=== PATIENT | female | born 1995 | race Caucasian/White ===

== ENCOUNTER → 2017-07-28 19:46 | Outpatient (CLI) | payer OTHER, SELFPAY ==
[2017-07-28 20:31] LABS: Basophils % 0.3 % (0.1-2.0); Eosinophils # 0.2 K/mm3 (0.0-0.4); Eosinophils % 1.8 % (0.1-12.0); Hematocrit 36.3 % (37.0-47.0); Hemoglobin 12.5 g/dL (12.2-16.2); Lymphocytes # 2.8 K/mm3 (0.7-4.5); Lymphocytes % 31.4 K/mm3 (10-50); Mean Corpuscular HGB Conc 34.3 g/dL (31.8-35.4); Mean Corpuscular Hemoglobin 29.8 pg (27.0-31.2); Mean Corpuscular Volume 86.8 fl (81-99); Mean Platelet Volume 7.3 fl (7.4-10.4); Monocytes # 0.4 K/mm3 (0.1-1.0); Monocytes % 4.6 % (1.7-9.3); Neutrophils # 5.6 K/mm3 (1.8-7.8); Neutrophils % 61.9 % (37.0-80.0); Platelet Count 346 K/mm3 (142-424); Red Blood Count 4.18 M/mm3 (4.20-5.40); Red Cell Distribution Width 12.7 % (11.5-17.5); White Blood Count 9.1 K/mm3 (4.8-10.8)
[2017-07-31 13:03] LABS: EBV Ab VCA, IgM <36.0 U/mL (0.0-35.9); EBV Nuclear Antigen Ab, IgG 39.2 U/mL (0.0-17.9)
[2017-08-01 05:20] LABS: CMV PCR Negative (Negative)
== END ==
PROVIDERS: PCP Nurse Practitioner Family; Visit Provider Nurse Practitioner Family
DX: R59.9 Enlarged lymph nodes, unspecified (principal)
CPT/HCPCS: 36415; 85025; 86664; 86665

== ENCOUNTER → 2019-12-27 11:49 | Outpatient (CLI) | payer OTHER, SELFPAY | PROVIDERS: PCP Nurse Practitioner Family; Visit Provider Nurse Practitioner Family | DX: Z03.818 Encounter for observation for suspected exposure to other biological agents ruled out (principal) | CPT/HCPCS: U0003 ==

== ENCOUNTER 2020-03-04 14:32 | Emergency (ER) | payer OTHER, SELFPAY ==
[2020-03-04 14:34] VITALS: BP 137/67; PULSE 90; RESP 16; TEMP 37.2; O2SAT 98; BMI 27.9
--- NOTE | 2020-03-04 14:35 | PC.NURSE ---
Patient advised a urine sample was needed. Pt in bathroom at this time.
--- NOTE | 2020-03-04 14:50 | HMH.EDGENADL ---
ED Disposition Clinical Impression: Threatened Disposition: Home, Self-Care Condition on Discharge: Good Instructions: DI for Headache Additional Instructions: pelvic rest until f/u w/ SEAMER OPERATOR Referrals: Meryl Solomon [Primary Care Provider] - - Critical Care Critical Care Time: No Attestation: On 03/04/20, the high probability of a clinically significant, sudden or life threatening deterioration of the following system(s) required my full and direct attention, intervention and personal management. The time I documented below is in addition to time spent performing reported procedures but includes the following listed in this critical care notation. Medical Decision Making - Medical Records Medical records reviewed: Yes: I reviewed the patient's medical records. - Prince Inquiry Pt receiving controlled substance: No Vital Signs: 03/04/20 14:34 Temperature 99 F Temperature Source Oral Pulse Rate [Radial] 90 Respiratory Rate 16 Blood Pressure [Right Arm] 137/67 Blood Pressure Mean [Right Arm] 90 Blood Pressure Position [Right Arm] Sitting 02 Sat by Pulse Oximetry 98 Oxygen Delivery Method Room Air - Lab Data Lab results reviewed: Yes: I reviewed the patient's lab results. Lab Results 03/04/20 14:37: Urine Color Yellow, Urine Appearance Clear, Urine pH 6.0, Ur Specific [place] 1.010, Urine Protein Negative, Urine Glucose (UA) Negative, Urine Ketones Negative, Urine Blood Negative, Urine Nitrate Negative, Urine Bilirubin Negative, Urine Urobilinogen 0.2, Ur Leukocyte Esterase Negative, Urine RBC None, Urine WBC None, Ur Squamous Epith Cells Occasional, Urine Bacteria None 03/04/20 15:20: HCG, Quant 1710 H Orders (Tests/Meds): ORDERS Category Date Time Status Covid-19 Nasal PCR Sendout P&C Stat Lab 03/04/20 15:20 Received General Adult HPI - General Chief complaint: Headache Stated complaint: headache, cough, spotting, covid employee Time Seen by Provider: 03/04/20 14:45 Mode of Arrival: Ambulatory Limitations: No Limitations Description of Symptoms (Recalled from ER Triage Doc. 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 test thursday. pt G3, P2, AB0. - History of Present Illness HPI narrative: This is a 24-year-old female that presents with frontal headache. Symptoms ongoing since last evening. Patient reports working on [employer] unit and both children also have Covid symptoms. Patient also reports scant vaginal discharge that is pink in color. Patient does report recent a positive test as of last week. Last menstrual cycle was approximately 4 to 6 weeks ago. No abdominal pain. No dysuria. Headache is moderate in intensity without modifying measures. No loss of taste or smell. No fever no chills. No body aches. No significant cough. - Related Data Home Medications Medication Instructions Recorded Confirmed sertraline 100 mg tablet PO #30 tab 11/04/18 09/12/19 Allergies Allergy/AdvReac Type Severity Reaction Status Date / Time No Known Allergies Allergy Verified 09/12/19 09:48 [facility] History - Hepatitis A Screen Drug use history?: No High risk sexual behaviors?: No History of sexually transmitted infection?: No Currently employed?: No Childcare worker?: No Do you have indoor plumbing?: Yes Do you have electricity?: Yes Attestation statement:: This patient has been screened for Hepatitis A risk factors. I have reviewed the patient's past medical history: Yes Medical History: Reports:: Migraine Denies:: Cancer, Diabetes Mellitus Type 1, Diabetes Mellitus Type 2, Hypertension, MRSA Other Medical History: Reports: Other Amputation: No Fractures: No - Social History Smoking Status: Never smoker Alcohol Intake: current Alcohol Intake Frequency:: holidays/special occasions only Occupational Status: employed Family Hx:: No sign
[2020-03-04 15:20] LABS: Microscopic, Urine URINE MICROSCOPIC (MICROSCOPIC)
[2020-03-04 15:21] LABS: Appearance,Urine CLEAR (Clear); Bilirubin,Urine Negative (Negative); Blood, Urine Negative (Negative); Color,Urine YELLOW (Yellow); Glucose,Urine (UA) Negative (Negative); Ketones,Urine Negative (Negative); Leukocyte Esterase,Urine Negative (Negative); Nitrate,Urine Negative (Negative); Protein,Urine Negative (Negative); Urobilinogen,Urine 0.2 EU/dl (0.2)
[2020-03-04 15:31] LABS: Squamous Epithelial Cell,Urine Occasional #/hpf (0-5)
[2020-03-04 16:00] LABS: HCG,Quantitative 1710 mIU/ml (0-5.42)
[2020-03-04 16:42] VITALS: BP 112/74; PULSE 89; RESP 16; TEMP 37.2; O2SAT 98
[2020-03-06 11:11] LABS: Covid-19 Nasal PCR Sendout P&C POSITIVE
== END 2020-03-04 16:44 | disposition home or self-care (01) ==
PROVIDERS: Emergency Provider Emergency Medicine; PCP Nurse Practitioner Family
DX: U07.1 COVID-19 (principal); O20.9 Hemorrhage in early pregnancy, unspecified
CPT/HCPCS: 81001; 84702; 99283; U0004

== ENCOUNTER → 2020-03-06 10:02 | Outpatient (CLI) | payer OTHER, SELFPAY ==
[2020-03-06 14:22] LABS: HCG,Quantitative 4316 mIU/ml (0-5.42)
== END ==
PROVIDERS: Visit Provider Nurse Practitioner Obstetrics & Gynecology
DX: Z34.90 Encounter for supervision of normal pregnancy, unspecified, unspecified trimester (principal)
CPT/HCPCS: 36415; 84702

== ENCOUNTER 2020-04-14 13:28 | Emergency (ER) | payer OTHER, SELFPAY ==
[2020-04-14 13:40] VITALS: BP 130/70; PULSE 78; RESP 16; TEMP 36.6; TEMP 36.7; O2SAT 98; BMI 26.6
[2020-04-14 14:07] LABS: Apearance,Urine Clear (Clear); Color,Urine Yellow (Yellow)
[2020-04-14 14:08] LABS: Bilirubin,Urine Negative (Negative); Blood, Urine Negative (Negative); Glucose,Urine (UA) Negative (Negative); Ketones,Urine Negative (Negative); Protein,Urine Negative (Negative); Specific Gravity, Urine >= 1.030 (1.005-1.030); UTC Leukocyte Esterase,Urine Negative (Negative); UTC Nitrate,Urine Negative (Negative); Urobilinogen,Urine 0.2 EU/dl (0.2)
--- NOTE | 2020-04-14 14:10 | HMH.EDUTC ---
[facility] [place] Dis[place] Clinical Impression: Nausea Disposition: Home, Self-Care Condition on Discharge: Good Instructions: DI for Nausea -- Child, Support (Alternative Therapy), Nausea of (Alternative Therapy) Additional Instructions: increase fluids follow up with technical support engineer-elevated glucose if symptoms return come back or be seen in ed Referrals: Meryl Solomon [Primary Care Provider] - Time of Disposition: 16:05 Medical Decision Making - Prince Inquiry Pt receiving controlled substance: No Vital Signs: 04/14/20 13:40 Temperature 98.0 F Temperature Source Oral Pulse Rate [Right] 78 Respiratory Rate 16 Blood Pressure [Right Arm] 130/70 Blood Pressure Mean [Right Arm] 90 Blood Pressure Source [Right Arm] Automatic Cuff Blood Pressure Position [Right Arm] Sitting 02 Sat by Pulse Oximetry 98 Oxygen Delivery Method Room Air - Lab Data Lab Results 04/14/20 13:41: Urine Color Yellow, Urine Appearance Clear, Urine pH 6.0, Ur Specific [place] >= 1.030, Urine Protein Negative, Urine Glucose (UA) Negative, Urine Ketones Negative, Urine Blood Negative, Urine Nitrate Negative, Urine Bilirubin Negative, Urine Urobilinogen 0.2, Ur Leukocyte Esterase Negative 04/14/20 14:20: WBC 8.5, RBC 4.05 L, Hgb 12.5, Hct 36.8 L, MCV 90.8, MCH 30.9, MCHC 34.0, RDW 13.9, Plt Count 302, MPV 7.5, Neut % (Auto) 65.1, Lymph % (Auto) 28.9, [place] % (Auto) 4.5, Eos % (Auto) 1.4, Baso % (Auto) 0.2, Neut # (Auto) 5.6, Lymph # (Auto) 2.5, [place] # (Auto) 0.4, Eos # (Auto) 0.1, Baso # (Auto) 0.0 04/14/20 14:20: Sodium 135 L, Potassium 3.8, Chloride 101, Carbon Dioxide 26, Anion Gap 11.8, BUN 13, Creatinine 0.50 L, Estimated Creat Clear 197, Estimated GFR 150, Est GFR ( Amer) 182, Glucose 113 H, Calcium 9.5, Total Bilirubin 0.2, AST 22, ALT 14, Alkaline Phosphatase 62, Total Protein 7.9, Albumin 4.1, Globulin 3.8 H, Albumin/Globulin Ratio 1.1 Result diagrams: 04/14/20 14:20 04/14/20 14:20 Orders (Tests/Meds): ED MEDICATIONS Generic Name Dose Route Start Last Admin Trade Name Sauarv PRN Reason Stop Dose Admin Sodium Chloride 1,000 mls @ 999 mls/hr 04/14/20 14:15 04/14/20 14:20 Sod Chlor 0.9% 1000ml Bag IV 04/14/20 15:15 999 mls/hr .[id number] RONNIE Administration ORDERS Category Date Time Status US OB transvaginal Stat Ultrasound 04/14/20 14:12 Ordered - Physician Consults Physician Consulted: allyson Time: 16:04 Reason -: Obstetrical Eval/Care, Other Comment/Response: discussed labs,us. pt states she feels better after iv fluids [facility] [place] HPI - General Chief complaint: [facility] Stated complaint: 11 weeks preg;pain in rt side;dizziness/TAN Time Seen by Provider: 04/14/20 14:10 Mode of Arrival: Ambulatory Source of Information: Patient Limitations: No Limitations Description of Symptoms (Recalled from Triage Doc. by RN): PATIENT IS APPROX 11 WEEKS AND C/O LIGHT-HEADED, DIZZINESS, AND PAIN IN RIGHT SIDE OF STOMACH HEENT Symptoms (Recalled from RN notes): No Resp Symptoms (Recalled from RN notes): No Skin Symptoms (Recalled from RN notes): No MS Symptoms (Recalled from RN notes): No Functional Status (Recalled from RN notes): WNL - History of Present Illness Provider Complaint: 25 yr old female presents for headache,dizzy and abd pain on rt side. pt states she talked with pcp and was told come get checked out to make sure she was not dehydrated. Pt states for the last 3 weeks she has had morning sickness so bad she has needed to take zofran. - Related Data Home Medications Medication Instructions Recorded Confirmed sertraline 100 mg tablet PO #30 tab 11/04/18 09/12/19 Allergies Allergy/AdvReac Type Severity Reaction Status Date / Time No Known Allergies Allergy Verified 09/12/19 09:48 - Worker's Comp Is this a Worker's Comp case?: No [facility] History - Hepatitis A Screen Drug use history?: No High risk sexual behaviors?: No History of sexually transmitted infecti
--- NOTE | 2020-04-14 14:12 | US_ITS ---
PROCEDURE: US OB TRANSVAGINAL Referring Doctor: Mc Helton Patient Age:25Y CLINICAL INDICATION: abd pain, 11 weeks COMPARISON: No exams were available for comparison FINDINGS: Single early viable intrauterine gestation.. Embryo well-visualized with good movement and tone. The amnion and chorion have not yet fused and are identified. . Small residual yolk sac noted Heart beat identified and documented. Heart rate 155 BPM. CRL = 3.9 cm = 10 week 6 day average ultrasound age Mean sac size is 4.89 = 10 week 5 day With above today's average ultrasound age is 10 weeks 6 days This is compared to gestational age based on LMP 01/27/2020 = 11 weeks 1 day. . The ovaries demonstrate normal flow and appearance. Right ovary 2.2 cm x 1.5 cm x 1.75 cm. Left ovary 2.2 cm x 1.6 x 1.5 cm. IMPRESSION: Single early viable intra uterine gestational. Good movement and tone at this the developing embryo. Heart beat identified and documented Average ultrasound age today = 10 weeks 6 days Dictated by: Corey Luevano MD 04/14/2020 16:58 Corey Luevano MD in OV 04/14/2020 16:58
[2020-04-14 14:53] LABS: Basophils % 0.2 % (0.1-2.0); Eosinophils # 0.1 K/mm3 (0.0-0.4); Eosinophils % 1.4 % (0.1-12.0); Hematocrit 36.8 % (37.0-47.0); Hemoglobin 12.5 g/dL (12.2-16.2); Lymphocytes # 2.5 K/mm3 (0.7-4.5); Lymphocytes % 28.9 % (10-50); Mean Corpuscular Hemoglobin 30.9 pg (27.0-31.2); Mean Corpuscular Volume 90.8 fl (81-99); Mean Platelet Volume 7.5 fl (7.4-10.4); Monocytes # 0.4 K/mm3 (0.1-1.0); Monocytes % 4.5 % (1.7-9.3); Neutrophils # 5.6 K/mm3 (1.8-7.8); Neutrophils % 65.1 % (37.0-80.0); Platelet Count 302 K/mm3 (142-424); Red Blood Count 4.05 M/mm3 (4.20-5.40); Red Cell Distribution Width 13.9 % (11.5-17.5); White Blood Count 8.5 K/mm3 (4.8-10.8)
[2020-04-14 14:54] LABS: Chloride 101 mmol/L (98-107); Potassium 3.8 mmoL/L (3.5-5.1); Sodium 135 mmol/L (136-145)
[2020-04-14 14:57] LABS: Alanine Aminotransferase 14 U/L (12-78); Albumin Level 4.1 g/dl (3.5-5.0); Albumin/Globulin Ratio 1.1 (1.1-1.8); Alkaline Phosphatase 62 U/L (38-126); Anion Gap 11.8 mEq/L (5-15); Aspartate Amino Transferase 22 U/L (14-36); Bilirubin,Total 0.2 mg/dl (0.2-1.3); Blood Urea Nitrogen 13 mg/dl (7-17); Calcium 9.5 mg/dl (8.4-10.2); Carbon Dioxide 26 mmol/L (22.0-30.0); Creatinine Clearance Estimated 197 mL/min (50-200); Estimated Glomerular Filt Rate 150 ml/min (>60); GFR (African American) 182 ML/MIN (>60); Globulin 3.8 g/dL (1.3-3.2); Glucose 113 mg/dl (74-100); Total Protein,Serum 7.9 g/dl (6.3-8.2)
[2020-04-14 16:19] VITALS: BP 130/70; PULSE 78; RESP 16; TEMP 36.7; O2SAT 98
== END 2020-04-14 16:25 | disposition home or self-care (01) ==
PROVIDERS: Emergency Provider Nurse Practitioner Family; PCP Nurse Practitioner Family
DX: O21.0 Mild hyperemesis gravidarum (principal); Z3A.11 11 weeks gestation of pregnancy; G43.709 Chronic migraine without aura, not intractable, without status migrainosus
CPT/HCPCS: 76817; 80053; 81003; 85025; 96365; 99202; G0463

== ENCOUNTER 2022-03-09 17:48 | Emergency (ER) | payer OTHER, SELFPAY ==
[2022-03-09 17:48] VITALS: BP 162/66; PULSE 117; RESP 18; TEMP 38.1; O2SAT 97; BMI 30.1
--- NOTE | 2022-03-09 17:57 | PC.NURSE ---
Covid swab sent to lab
[2022-03-09 18:01] LABS: Coronavirus 19, PCR Not Detected (NotDetected); Influenza A, PCR Not Detected (NotDetected); Influenza B, PCR Not Detected (NotDetected)
--- NOTE | 2022-03-09 18:09 | HMH.EDGENADL ---
Discharge Plan Disposition Patient Disposition: Home, Self-Care Condition: Good Prescriptions Prescriptions: New amoxicillin 500 mg capsule 500 mg PO TID Qty: 30 0RF No Action sertraline 100 mg tablet PO Qty: 30 Label Comments: TAKE 1 TABLET BY MOUTH AT BEDTIME Referrals Follow up/Referrals: Meryl Solomon [Primary Care Provider] - See instructions Activity Restrictions/Add. Instructions Additional Instructions/Restrictions: Amoxicillin as prescribed. Tylenol or ibuprofen for pain or fever. Follow-up with primary care provider if not improving in 4 to 5 days. Clinical Impressions Clinical Impression: Acute streptococcal tonsillitis Instructions Patient Instructions: DI for Strep Throat Discharge ED Provider: Tejinder Jimenez General Adult HPI General Chief complaint: Upper Respiratory Infection Stated complaint: Headache, sore throat, bodyaches Time Seen by Provider: 03/09/22 18:05 Mode of Arrival: Ambulatory Source of Information: Patient Limitations: No Limitations Description of Symptoms (Recalled from ER Triage Doc. by RN): c/o sore throat, TAN, fever since yesterday. History of Present Illness HPI narrative: Patient states that she has a headache, sore throat, body aches, fever. Also has had some vomiting and diarrhea. She says symptoms started yesterday with just a slight scratchy throat. She works at [employer]. She did a COVID test there that was negative. She also repeated a COVID test at home today when she began feeling worse and it was negative as well. She says COVID has been going around the jail. No known exposure to flu or strep. Related Data Home Medications Medication Instructions Recorded Confirmed sertraline 100 mg tablet PO #30 tabs 11/04/18 09/12/19 Previous Rx's Medication Instructions Recorded amoxicillin 500 mg capsule 500 mg PO TID #30 caps 03/09/22 Allergies Allergy/AdvReac Type Severity Reaction Status Date / Time No Known Allergies Allergy Verified 09/12/19 09:48 [facility] Disclaimer: The information contained in this section may have been updated after the patient was seen, as this information can be updated by other users. Social History Smoking Status: Never smoker alcohol intake: never current occupational status: other Travel in the last 8 weeks: None ROS Obtained: Yes Systems reviewed as appropriate & no additional complaints except as documented Constitutional Constitutional: Reports body ache, Reports fever(s) and Reports headache(s) ENT Ears, Nose, Mouth, and Throat: Reports headache(s) and Reports sore throat Cardiovascular Cardiovascular: Denies chest pain Respiratory Respiratory: Denies shortness of breath and Denies cough Gastrointestinal Gastrointestingal: Reports diarrhea and vomiting; Denies abdominal pain or constipation Neurologic Neurologic: Reports headache(s) Physical Exam General General appearance: alert and in no apparent distress Head Head exam: atraumatic and normocephalic Eye Eye exam: Present normal appearance and EOMI; Absent conjunctival injection ENT ENT exam: Present mucous membranes moist, TM's normal bilaterally and other (Tonsils mildly enlarged. Very minimal erythema pharynx. Minimal exudates.) Neck Neck exam: Present normal inspection, full ROM, trachea midline and lymphadenopathy (Tender, not significantly enlarged submandibular nodes bilaterally. No posterior adenopathy.); Absent meningismus Chest Chest inspection: Present normal inspection and symmetric chest wall rise Respiratory Respiratory exam: Present normal lung sounds bilaterally; Absent respiratory distress Cardiovascular Cardiovascular exam: Present regular rate, normal rhythm and normal heart sounds Neurological Exam Neurological exam: Present alert and oriented X3 Psychiatric Psychiatric exam: Present normal affect and normal mood Skin Skin exam: Present warm and dry [facility]
[2022-03-09 18:29] LABS: Strep Scrn Group A (Rapid) Positive (Negative)
[2022-03-09 18:30] VITALS: BP 149/86; PULSE 115; RESP 18; O2SAT 97
[2022-03-09 19:00] VITALS: BP 149/89; PULSE 115; RESP 18; TEMP 38.1; O2SAT 97
== END 2022-03-09 19:01 | disposition home or self-care (01) ==
PROVIDERS: Emergency Provider Emergency Medicine; PCP Nurse Practitioner Family
DX: J02.0 Streptococcal pharyngitis (principal); B95.0 Streptococcus, group A, as the cause of diseases classified elsewhere; R50.9 Fever, unspecified; M79.10 Myalgia, unspecified site; R11.10 Vomiting, unspecified; R19.7 Diarrhea, unspecified; Z20.822 Contact with and (suspected) exposure to COVID-19; R51.9 Headache, unspecified
CPT/HCPCS: 87430; 99283; C9803; U0003; U0005

== ENCOUNTER 2022-12-30 11:50 | Emergency (ER) | payer OTHER, SELFPAY ==
[2022-12-30] VITALS (8 sets, daily range): BP systolic 108–153; BP diastolic 60–92; PULSE 101–109; RESP 15–19; TEMP 36.7; O2SAT 98–100; BMI 29.2
--- NOTE | 2022-12-30 11:52 | ECG_ITS ---
APPROVED REPORT Exam: Resting ECG HR:107 bpm ECG Measurements Heart Rate 107 AXES NC 151 P 71 QRSd 81 QRS 84 QT 334 T 33 QTc 397 Conclusion SINUS TACHYCARDIA POSSIBLE LEFT ATRIAL ENLARGEMENT [-0.1mV P-WAVE IN V1/V2] NONSPECIFIC ST & T-WAVE ABNORMALITY ABNORMAL RHYTHM ECG UNCONFIRMED REPORT Electronically signed by : Maximino Landa MD 12/30/2022 19:22:10
--- NOTE | 2022-12-30 12:26 | XR_ITS ---
FINAL REPORT CLINICAL HISTORY: dyspnea FINDINGS: SINGLE-VIEW CHEST The heart size is normal. The mediastinum is normal. The lungs are clear. There is no pneumothorax. IMPRESSION: No acute cardiopulmonary process. Reviewed, Interpreted and Dictated by Sandeep Schaefer III, MD Transcribed by Nery Santana Authenticated and . [facility]
--- NOTE | 2022-12-30 12:26 | HMH.EDGENADL ---
Discharge Plan Disposition Patient Disposition: Home, Self-Care Prescriptions Prescriptions: No Action sertraline 100 mg tablet PO Qty: 30 Patient Comments: TAKE 1 TABLET BY MOUTH AT BEDTIME amoxicillin 500 mg capsule 500 mg PO TID Qty: 30 0RF Referrals Follow up/Referrals: Provider,Referral, [Referring] - See instructions Activity Restrictions/Add. Instructions Additional Instructions/Restrictions: No acute cardiopulmonary emergency identified please follow-up with primary care doctor as needed. Clinical Impressions Clinical Impression: Chest pain, pleuritic Discharge ED Provider: Diane Isabel General Adult HPI General Chief complaint: Chest Pain Stated complaint: Chest Pain Time Seen by Provider: 12/30/22 12:18 Mode of Arrival: Ambulatory Limitations: No Limitations Description of Symptoms (Recalled from ER Triage Doc. by RN): Patient reports left shoulder pain with bilateral rib pain that started last night. History of Present Illness HPI narrative: Patient is a 27-year-old female presenting with chest pain. States its in her retrosternal area radiates some to her back associated with any type of movement or specifically breathing. She denies any significant cough fevers chills recent cold. She did have a GI illness 2 to 3 weeks ago. Denies any significant abdominal pain. Has any lower extremity edema or swelling history of DVT or PE however recently did have a sister who had a clot but this was induced secondary to . Additionally she states she has had very significant anxiety and stress as her children's father within the last 2 days has been in nursing home and she has had significant stress associated with that. Related Data Home Medications Medication Instructions Recorded Confirmed sertraline 100 mg tablet PO #30 tabs 11/04/18 09/12/19 Previous Rx's Medication Instructions Recorded amoxicillin 500 mg capsule 500 mg PO TID #30 caps 03/09/22 Allergies Allergy/AdvReac Type Severity Reaction Status Date / Time No Known Allergies Allergy Verified 09/12/19 09:48 [facility] Disclaimer: The information contained in this section may have been updated after the patient was seen, as this information can be updated by other users. Social History Smoking Status: Never smoker alcohol intake: never current occupational status: other Travel in the last 8 weeks: None ROS Obtained: Yes All systems reviewed & no additional complaints except as documented Physical Exam General General appearance: alert Respiratory Respiratory exam: Present normal lung sounds bilaterally and respiratory distress Cardiovascular Cardiovascular exam: Present tachycardia Abdominal Exam Abdominal exam: Present soft; Absent distention or tenderness Extremities Exam Extremities exam: Present other (No lower extremity swelling) Neurological Exam Neurological exam: Present alert Medical Decision Making Prince Inquiry Pt receiving controlled substance: No Vital Signs: 12/30/22 11:51 12/30/22 12:00 12/30/22 12:30 Temperature 98.0 F Temperature Source Oral Pulse Rate 109 H 106 H Pulse Rate [Radial] 106 H Respiratory Rate 18 16 15 Blood Pressure 125/79 125/63 Blood Pressure [Right Arm] 153/92 H Blood Pressure Mean [Right Arm] 112 Blood Pressure Source [Right Arm] Automatic Cuff Blood Pressure Position [Right Arm] Sitting 02 Sat by Pulse Oximetry 99 98 99 Oxygen Delivery Method Room Air 12/30/22 13:00 12/30/22 13:46 12/30/22 14:00 Temperature Temperature Source Pulse Rate 104 H 104 H Pulse Rate [Radial] Respiratory Rate 18 19 16 Blood Pressure 122/73 137/71 131/81 Blood Pressure [Right Arm] Blood Pressure Mean [Right Arm] Blood Pressure Source [Right Arm] Blood Pressure Position [Right Arm] 02 Sat by Pulse Oximetry 99 100 98 Oxygen Delivery Method 12/30/22 14:30 Temperature Temperature Source Pulse Rate
[2022-12-30 12:36] LABS: Alanine Aminotransferase 26 U/L (12-78); Albumin Level 4.8 g/dl (3.5-5.0); Albumin/Globulin Ratio 1.2 (1.1-1.8); Alkaline Phosphatase 56 U/L (38-126); Anion Gap 14.6 mEq/L (5-15); Aspartate Amino Transferase 34 U/L (14-36); Bilirubin,Total 0.5 mg/dl (0.2-1.3); Blood Urea Nitrogen 11 mg/dl (7-17); Calcium 8.8 mg/dl (8.4-10.2); Carbon Dioxide 25 mmol/L (22.0-30.0); Chloride 102 mmol/L (98-107); Creatinine Clearance Estimated 166 mL/min (50-200); Estimated Glomerular Filt Rate 120 ml/min (>60); GFR (African American) 145 ML/MIN (>60); Globulin 3.9 g/dL (1.3-3.2); Glucose 93 mg/dl (74-100); Lipase 57 U/L (23-300); Potassium 3.6 mmoL/L (3.5-5.1); Sodium 138 mmol/L (136-145); Total Protein,Serum 8.7 g/dl (6.3-8.2)
[2022-12-30 12:42] LABS: D-Dimer 0.79 ug/mL (0.0-0.5)
[2022-12-30 12:45] LABS: Basophils % 0.4 % (0.1-2.0); Eosinophils % 0.7 % (0.1-12.0); Hematocrit 39.4 % (37.0-47.0); Hemoglobin 13.8 g/dL (12.2-16.2); Lymphocytes # 1.2 K/mm3 (0.7-4.5); Lymphocytes % 21.9 % (10-50); Mean Corpuscular Hemoglobin 31.5 pg (27.0-31.2); Mean Corpuscular Volume 89.9 fl (81-99); Monocytes # 0.3 K/mm3 (0.1-1.0); Monocytes % 5.6 % (1.7-9.3); Neutrophils # 3.8 K/mm3 (1.8-7.8); Neutrophils % 71.4 % (37.0-80.0); Platelet Count 253 K/mm3 (142-424); Red Blood Count 4.38 M/mm3 (4.20-5.40); Red Cell Distribution Width 12.9 % (11.5-17.5); White Blood Count 5.4 K/mm3 (4.8-10.8)
[2022-12-30 12:50] LABS: Troponin I < 0.01 ng/ml (0.00-0.034)
[2022-12-30 12:59] LABS: HCG Qualitative, Serum Negative (Negative)
--- NOTE | 2022-12-30 13:00 | CT_ITS ---
FINAL REPORT TECHNIQUE: Then section axial CT images of the chest were obtained with contrast. Three-D reformatted images were also obtained.This study was performed with techniques to keep radiation doses as low as reasonably achievable (ALARA). Individualized dose reduction techniques using automated exposure control or adjustment of mA and/or kV according to the patient''s size were employed. CLINICAL HISTORY: pleuritic chest pain; elevated dimer COMPARISON: None FINDINGS: There is no evidence of pulmonary embolism. There is no evidence of thoracic aortic aneurysm or dissection. There is no evidence of mediastinal or hilar mass or adenopathy. There is a 5 mm posterior right lower lobe nodule present, likely benign. No localized inflammatory process is seen within the lungs. Limited images of the upper abdomen are unremarkable. IMPRESSION: No evidence of pulmonary embolism. No mass or localized inflammatory process. Reviewed, Interpreted and Dictated by Sandeep Schaefer III, MD Transcribed by Raquel Izaguirre Authenticated and [facility]
--- NOTE | 2022-12-30 13:30 | PC.NURSE ---
rounded on pt no needs, call light at bs
--- NOTE | 2022-12-30 13:41 | PC.NURSE ---
Pt returned from RAD
--- NOTE | 2022-12-30 13:47 | PC.NURSE ---
Pt provided with drink. No other needs voiced at this time.
--- NOTE | 2022-12-30 15:10 | PC.NURSE ---
Dr. Isabel at BS to update pt on POC
== END 2022-12-30 15:19 | disposition home or self-care (01) ==
PROVIDERS: Emergency Provider Student in an Organized Health Care Education/Training Program; PCP Nurse Practitioner Family
DX: R07.81 Pleurodynia (principal); R00.0 Tachycardia, unspecified
CPT/HCPCS: 71045; 71275; 80053; 83690; 84484; 84703; 85025; 85378; 93005; 96361; 96374; 99285; Q9967

== ENCOUNTER 2023-09-01 10:39 | Emergency (ER) | payer OTHER, SELFPAY ==
[2023-09-01 10:50] VITALS: BP 111/79; PULSE 73; RESP 20; TEMP 36.8; O2SAT 100; BMI 30.8
--- NOTE | 2023-09-01 11:22 | EXP.UTC ---
Discharge Plan Disposition Patient Disposition: Home, Self-Care Condition: Good Prescriptions Prescriptions: New methylprednisolone [Medrol (Jhonatan)] 4 mg tablets,dose pack See Rx Instructions .ROUTE .COMPLEX 6 Days Qty: 21 0RF Rx Instructions: 4 mg orally ;Medrol dose taper jhonatan ibuprofen 800 mg tablet 800 mg PO TID PRN (Reason: pain) Qty: 30 0RF Referrals Follow up/Referrals: Meryl Solomon [Primary Care Provider] - See instructions Clinical Impressions Clinical Impression: Acute bilateral knee pain Instructions Patient Instructions: How To Perform RICE (Rest, Ice, Compress, Elevate), DI for Knee Effusion, DI for Knee Pain Discharge ED Provider: Izabel Triana [facility] [place] HPI General Stated complaint: pain in both knees, swelling Mode of Arrival: Ambulatory Source of Information: Patient Limitations: No Limitations Time Seen by Provider: 09/01/23 11:22 Description of Symptoms (Recalled from Triage Doc. by RN): PATIENT C/O BILATERAL KNEE PAIN AND SWELLING X 5 DAYS HEENT Symptoms (Recalled from RN notes): No Resp Symptoms (Recalled from RN notes): No Skin Symptoms (Recalled from RN notes): No MS Symptoms (Recalled from RN notes): Yes Functional Status (Recalled from RN notes): WNL History of Present Illness Provider Complaint: Pt relates that she has bilateral knee pain with swelling for the past couple of weeks. 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 She has taken Tylenol for the pain. Related Data Previous Rx's Medication Instructions Recorded ibuprofen 800 mg tablet 800 mg PO TID PRN pain #30 tabs 09/01/23 methylprednisolone 4 mg tablets in See Rx Instructions .Route 09/01/23 a dose pack (Medrol (Jhonatan)) .COMPLEX 6 days #21 tabs Allergies Allergy/AdvReac Type Severity Reaction Status Date / Time No Known Allergies Allergy Unverified 03/25/23 15:58 Worker's Comp Is this a Worker's Comp case?: No [facility] Disclaimer: The information contained in this section may have been updated after the patient was seen, as this information can be updated by other users. Medical History (Updated 09/01/23 @ 11:33 by Izabel Triana APRN) Depression Anxiety Asthma No significant family history Surgical History No significant past surgical history Social History Smoking Status: Never smoker alcohol intake: never substance use type: denies use current occupational status: employed Travel in the last 8 weeks: None household members: children housing: house marital status: single ROS Obtained: Yes All systems reviewed & no additional complaints except as documented Constitutional Constitutional: Reports system reviewed and no additional complaints, except as documented Eyes Eyes: Reports system reviewed and no additional complaints, except as documented ENT Ears, Nose, Mouth, and Throat: Reports system reviewed and no additional complaints, except as documented Cardiovascular Cardiovascular: Reports system reviewed and no additional complaints, except as documented Respiratory Respiratory: Reports system reviewed and no additional complaints, except as documented Gastrointestinal Gastrointestingal: Reports system reviewed and no additional complaints, except as documented Genitourinary Female Genitourinary: Reports system reviewed and no additional complaints, except as documented Musculoskeletal Musculoskeletal: Reports system reviewed and no additional complaints, except as documented, Reports arthralgias, Reports joint swelling and Reports limited range of motion Integumentary/Breasts Skin/Breast: Reports system reviewed and no additional complaints, except as documented Neurologic Neurologic: Reports system reviewed and no additional complaints, except as documented Endocrine Endocrine: Reports system reviewed and no additional complaints, except as documented Hematologic/Lymphatic Henatologic/Lymphatic: Reports system reviewed and no additional complaints, except as documented Allergic/Immunologic Allergic/Immunologic: Reports system reviewed and no additional complaints, except as documented Physical Exam General General appearance: alert and in no apparent distress Head Head exam: atraumatic and normocephalic Eye Eye exam: Present normal appearance ENT ENT exam: Present normal exam Neck Neck exam: Present normal inspection Chest Chest inspection: Present normal inspection and symmetric chest wall rise Respiratory Respiratory exam: Present normal lung sounds bilaterally Cardiovascular Cardiovascular exam: Present regular rate, normal rhythm and normal heart sounds Abdominal Exam Abdominal exam: Present soft and normal bowel sounds Expanded Lower Extremity Exam bilateral: Hip/Pelvis exam: Present normal inspection Upper leg exam: Present normal inspection Knee exam: Present tenderness (lateral aspect), swelling and effusion Lower leg exam: Present normal inspection Ankle exam: Present normal inspection Foot/toe exam: Present normal inspection Neurovascular/Tendon exam: Present normal capillary refill Gait: observed and normal Back Exam Back exam: Present normal inspection Neurological Exam Neurological exam: Present alert and oriented X3 Psychiatric Psychiatric exam: Present normal affect and normal mood Skin Skin exam: Present warm and dry Lymphatic Lymphatic Findings: no adenopathy Medical Decision Making Prince Inquiry Pt receiving controlled substance: No Prince was queried for this patient: No Vital Signs: 09/01/23 10:50 Temperature 98.2 F Temperature Source Oral Pulse Rate [Left Brachial] 73 Respiratory Rate 20 Blood Pressure [Left Arm] 111/79 Blood Pressure Mean [Left Arm] 89 Blood Pressure Source [Left Arm] Automatic Cuff Blood Pressure Position [Left Arm] Sitting 02 Sat by Pulse Oximetry 100 Oxygen Delivery Method Room Air
[2023-09-01 11:35] VITALS: BP 111/79; PULSE 73; RESP 20; TEMP 36.8; O2SAT 100
== END 2023-09-01 11:37 | disposition home or self-care (01) ==
PROVIDERS: Emergency Provider Nurse Practitioner Family; PCP Nurse Practitioner Family
DX: M25.561 Pain in right knee (principal); M25.562 Pain in left knee; R22.43 Localized swelling, mass and lump, lower limb, bilateral
CPT/HCPCS: 99204; 99212; G0463

== ENCOUNTER 2024-03-06 09:02 | Emergency (ER) | payer OTHER, SELFPAY ==
[2024-03-06] VITALS (9 sets, daily range): BP systolic 111–158; BP diastolic 52–91; PULSE 85–107; RESP 14–21; TEMP 37.4; O2SAT 94–99; BMI 29.2
--- NOTE | 2024-03-06 09:02 | ECG_ITS ---
APPROVED REPORT Exam: Resting ECG HR:102 bpm ECG Measurements Heart Rate 102 AXES MT 142 P 72 QRSd 81 QRS 84 QT 341 T 64 QTc 399 Conclusion SINUS TACHYCARDIA NONSPECIFIC ST & T-WAVE ABNORMALITY ABNORMAL RHYTHM ECG UNCONFIRMED REPORT Electronically signed by : BERNICE COLÓN, 03/08/2024 07:08:04
--- NOTE | 2024-03-06 09:12 | XR_ITS ---
PROCEDURE INFORMATION: Exam: XR Chest Exam date and time: 03/06/2024 9:20 AM Age: 28 years old Clinical indication: Cough; Chest wall pain; Additional info: Cp, cough TECHNIQUE: Imaging protocol: Radiologic exam of the chest. Views: 1 view. COMPARISON: CR XR CHEST PORTABLE 12/30/2022 1:33 PM FINDINGS: Lungs: No evidence of pneumonia or interstitial edema. Pleural spaces: Unremarkable. No pleural effusion. No pneumothorax. Heart/Mediastinum: Unremarkable. No cardiomegaly. Bones/joints: Unremarkable. IMPRESSION: No evidence of pneumonia or interstitial edema.
--- NOTE | 2024-03-06 09:14 | HMH.EDGENADL ---
Discharge Plan Disposition Patient Disposition: Home, Self-Care Condition: Good Referrals Follow up/Referrals: Provider,Referral, MD [Referring] - See instructions Activity Restrictions/Add. Instructions Additional Instructions/Restrictions: Alternate Tylenol and ibuprofen every 3 hours as needed for discomfort or fever. Do your best to drink at least 60 ounces of water per day. You may not feel like eating over the next few days, which is okay. Based on the kind of work you do, it is recommended that you do not go back into work until Thursday. If you have to be around other people, it is advised that you wear a mask as to not spread the infection. Please follow up with your primary care provider in 2-3 days, as needed. Please return to ED if your symptoms worsen, change in location, change in severity, new symptoms develop or if you become concerned for your health. Clinical Impressions Clinical Impression: Influenza A Stand Alone Forms Stand Alone Forms: Work/School Release Instructions Patient Instructions: Influenza Print Language Print Language: Maori Discharge ED Provider: Karol Massey General Adult HPI General Chief complaint: Chest Pain Stated complaint: COUGH,FEVER,CHEST PAIN Time Seen by Provider: 03/06/24 09:03 History of Present Illness HPI narrative: Patient is a 28-year-old female presenting with multiple complaints. Patient states she has had cough for the past 2 days. This morning when the patient woke up she was having right-sided chest pain that she describes as burning. Patient also states she is being treated with clindamycin for a tooth infection. Patient is currently has a Kyleena IUD. Patient denies smoking. Patient recently had her annual gynecology visit and was told that she had a small lump on her right breast. Patient states she has been very anxious about this but is scheduled to have an ultrasound for further evaluation. 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 Patient denies headache, shortness of breath, nausea, vomiting, bowel or bladder dysfunction. Related Data Allergies Allergy/AdvReac Type Severity Reaction Status Date / Time No Known Allergies Allergy Verified 03/06/24 09:20 [facility] Disclaimer: The information contained in this section may have been updated after the patient was seen, as this information can be updated by other users. Medical History Depression Anxiety Asthma No significant family history Surgical History No significant past surgical history Social History Smoking Status: Never smoker alcohol intake: never substance use type: denies use current occupational status: employed Travel in the last 8 weeks: None household members: children housing: house marital status: single Have you lived/traveled outside US in past 30 days?: No Contact w/someone who lives/traveled outside US past 30 days?: No Exposure to someone with infectious disease in past 14 days?: No Do you have a fever (greater than 100.4 F or 38 C)?: No Have you tested positive for COVID-19: No Exposed to someone with COVID-19 in past 14 days?: No Do you have a sore throat?: No Do you have a cough?: No Do you have any weakness?: No Do you have any diarrhea?: No Are you experiencing any unusual bleeding?: No Do you have any muscle aches/pain?: No Do you have any abdominal pain?: No Are you experiencing loss of taste or smell?: No Other Medical History Have you received the Flu Vaccine for this season: No Have you received the Pneumonia Vaccine: No ROS Obtained: Yes All systems reviewed & no additional complaints except as documented Physical Exam General General appearance: alert and in no apparent distress ENT ENT exam: Present normal exam Neck Neck exam: Present full ROM; Absent tenderness Respiratory Respiratory exam: Present normal lung sounds bilaterally; Absent respiratory distress or wheezes Cardiovascular Cardiovascular exam: Present regular rate, normal rhythm, tachycardia and normal heart sounds Abdominal Exam Abdominal exam: Present soft; Absent distention, tenderness or guarding Extremities Exam Extremities exam: Present normal inspection and full ROM; Absent edema or calf tenderness Neurological Exam Neurological exam: Present alert and oriented X3 Skin Skin exam: Present warm and dry Medical Decision Making Medical Records Screening: Per USPSTF and CDC recommendations, given the prevalence of disease in our region, it is our hospital?s policy to screen for HIV and viral Hepatitis for all patients aged 18 and over and those with ongoing risk factors. Prince Inquiry Pt receiving controlled substance: No Vital Signs: 03/06/24 09:08 03/06/24 09:17 03/06/24 09:23 Temperature 99.3 F Temperature Source Oral Pulse Rate 101 H 97 H Pulse Rate [Left] 101 H Respiratory Rate 16 21 Blood Pressure 137/77 Blood Pressure [Right Arm] 158/86 H Blood Pressure Mean [Right Arm] 110 Blood Pressure Source [Right Arm] Automatic Cuff Blood Pressure Position [Right Arm] Sitting 02 Sat by Pulse Oximetry 99 98 Oxygen Delivery Method Room Air 03/06/24 09:30 03/06/24 10:00 03/06/24 10:30 Temperature Temperature Source Pulse Rate 107 H 95 H 85 Pulse Rate [Left] Respiratory Rate 21 16 16 Blood Pressure 143/82 H 131/66 111/52 L Blood Pressure [Right Arm] Blood Pressure Mean [Right Arm] Blood Pressure Source [Right Arm] Blood Pressure Position [Right Arm] 02 Sat by Pulse Oximetry 97 95 95 Oxygen Delivery Method Room Air 03/06/24 11:00 Temperature Temperature Source Pulse Rate 94 H Pulse Rate [Left] Respiratory Rate 17 Blood Pressure 135/64 Blood Pressure [Right Arm] Blood Pressure Mean [Right Arm] Blood Pressure Source [Right Arm] Blood Pressure Position [Right Arm] 02 Sat by Pulse Oximetry 95 Oxygen Delivery Method Room Air Lab Data Lab Results 03/06/24 09:09: WBC 5.5, RBC 4.16 L, Hgb 12.7, Hct 36.6 L, MCV 88.0, MCH 30.5, MCHC 34.7, RDW 12.4, Plt Count 263, MPV 9.7, Neut % (Auto) 80.9 H, Lymph % (Auto) 9.4 L, [place] % (Auto) 8.0, Eos % (Auto) 1.0, Baso % (Auto) 1.0, Neut # (Auto) 4.5, Lymph # (Auto) 0.5 L, [place] # (Auto) 0.4, Eos # (Auto) 0.1, Baso # (Auto) 0.0, D-Dimer 0.55 H, Sodium 136, Potassium 3.8, Chloride 105, Carbon Dioxide 26, Anion Gap 8.8, BUN 9, Creatinine 0.80, Estimated Creat Clear 124, Estimated GFR 85, Est GFR ( Amer) 103, Glucose 97, Calcium 9.1, Troponin I < 0.01 03/06/24 09:18: SARS-CoV-2 (PCR) Not detected, Influenza A Untype (PCR) Detected A, Influenza Type B (PCR) Not detected 03/06/24 09:09 03/06/24 09:09 Orders (Tests/Meds): ED MEDICATIONS Discontinued Medications Generic Name Dose Route Start Last Admin Trade Name Saurav PRN Reason Stop Dose Admin Acetaminophen 1,000 mg 03/06/24 09:18 03/06/24 09:19 Acetaminophen 500mg Tab PO 03/06/24 09:19 1,000 mg ONCE ONE Administration Ketorolac Tromethamine 15 mg 03/06/24 09:12 03/06/24 09:18 Ketorolac 30mg/Ml Vial IV 03/06/24 09:13 15 mg ONCE ONE Administration ORDERS Category Date Time Status CXR --portable [XR chest portable] Stat Exams 03/06/24 09:12 Completed BMP [Basic Metabolic Panel] Stat Lab 03/06/24 09:09 Completed CBC w/Auto Diff [Complete Blood Count Auto Diff] Stat Lab 03/06/24 09:09 Completed D-Dimer Stat Lab 03/06/24 09:09 Completed HIV Combo Stat Lab 03/06/24 09:09 Received Hep C Ab with Reflex to RNA Stat Lab 03/06/24 09:09 Received Rapid PCR Covid and Flu A/B Stat Lab 03/06/24 09:18 Completed Trop I [Troponin I] Stat Lab 03/06/24 09:09 Completed ECG Data Tracing #1: I reviewed this ECG and interpreted as documented below: EKG with sinus tachycardia, no QTc prolongation, no significant ST elevation/depression or evidence of acute ischemia ECG initial impression date: 03/06/24 ECG initial impression time: 09:06 Medical Decision Narrative: Patient is a previously healthy 28-year-old female presenting with cough and chest pain. Differential diagnosis includes but is not limited to, viral URI, pneumonia, costochondritis, PE, ACS, among others. Patient has known infectious exposure and currently works in an environment where she is exposed to multiple different patients in a [place]. Patient is overall well-appearing on exam. Patient is tachycardic and has an IUD. Given that the patient's chest pain is primarily on the right side, despite cough, we will perform a D-dimer for risk evaluation of a PE. Patient will also be swabbed for COVID/influenza due to her exposures. CXR for additional evaluation of pneumonia and other abnormalities. Patient symptomatically treated with Tylenol and Toradol. EKG is reassuring and only significant for sinus tachycardia. CXR with no acute consolidation, pleural effusion. CXR demonstrates bilateral perihilar thickening, suggestive of a viral URI. Patient's D-dimer 0.55, PE ruled out per years criteria. Patient's labs negative for leukocytosis and a negative troponin. Will cancel repeat troponin. Patient's remaining labs are unremarkable and nonactionable. Patient's viral swab significant for influenza A. Patient offered Tamiflu based on presenting within 48 hours of symptoms, patient refused. We discussed symptomatic treatment as well as staying home from work until she is scheduled to go back on Thursday. Patient given a work excuse. Patient also advised to thoroughly wash her hands and wear a mask when she is around friends/family over the holidays. Patient in agreement with this plan. Patient given return precautions and discharged in stable condition. Karol Massey MD PGY-3, Emergency Medicine Critical Care Critical Care Time Critical Care Time: No
[2024-03-06] MEDS: KETOROLAC 30MG/ML VIAL 15 MG IV (09:18)
[2024-03-06] MEDS: ACETAMINOPHEN 500MG TAB 1000 MG PO (09:19)
[2024-03-06 09:23] LABS: Coronavirus 19, PCR Not Detected (NotDetected); Influenza B, PCR Not Detected (NotDetected)
[2024-03-06 09:23] LABS: Chloride 105 mmol/L (98-107); Potassium 3.8 mmoL/L (3.5-5.1); Sodium 136 mmol/L (136-145)
[2024-03-06 09:26] LABS: Blood Urea Nitrogen 9 mg/dl (7-17); Creatinine Clearance Estimated 124 mL/min (50-200); Estimated Glomerular Filt Rate 85 ml/min (>60); GFR (African American) 103 ML/MIN (>60)
[2024-03-06 09:27] LABS: Anion Gap 8.8 mEq/L (5-15); Calcium 9.1 mg/dl (8.4-10.2); Carbon Dioxide 26 mmol/L (22.0-30.0); Glucose 97 mg/dl (74-100)
[2024-03-06 09:32] LABS: D-Dimer 0.55 ug/mL (0.0-0.5)
[2024-03-06 09:38] LABS: Hematocrit 36.6 % (37.0-47.0); Hemoglobin 12.7 g/dL (12.2-16.2); Lymphocytes % 9.4 % (10-50); Mean Corpuscular HGB Conc 34.7 g/dL (31.8-35.4); Mean Corpuscular Hemoglobin 30.5 pg (27.0-31.2); Mean Platelet Volume 9.7 fl (7.4-10.4); Neutrophils % 80.9 % (37.0-80.0); Platelet Count 263 K/mm3 (142-424); Red Blood Count 4.16 M/mm3 (4.20-5.40); Red Cell Distribution Width 12.4 % (11.5-17.5); White Blood Count 5.5 K/mm3 (4.8-10.8)
[2024-03-06 09:39] LABS: Eosinophils # 0.1 K/mm3 (0.0-0.4); Lymphocytes # 0.5 K/mm3 (0.7-4.5); Monocytes # 0.4 K/mm3 (0.1-1.0); Neutrophils # 4.5 K/mm3 (1.8-7.8)
[2024-03-06 09:42] LABS: Troponin I < 0.01 ng/ml (0.00-0.034)
--- NOTE | 2024-03-06 09:46 | PC.NURSE ---
I rounded on the pt. no new complaints at this time. no needs voiced. call emerson in reach.
--- NOTE | 2024-03-06 10:00 | PC.NURSE ---
No needs at this time. Call light in reach
--- NOTE | 2024-03-06 10:06 | PC.NURSE ---
pt resting with her eyes closed at this time. call emerson in reach.
[2024-03-06 11:27] LABS: Influenza A, PCR Detected (NotDetected)
[2024-03-06 13:40] LABS: HIV Combo NEGATIVE (Negative)
[2024-03-07 10:08] LABS: HCV Ab Non Reactive (Non Reactive)
== END 2024-03-06 11:43 | disposition home or self-care (01) ==
PROVIDERS: Emergency Provider Student in an Organized Health Care Education/Training Program; PCP Nurse Practitioner Family
DX: J10.1 Influenza due to other identified influenza virus with other respiratory manifestations (principal); R05.9 Cough, unspecified; R07.9 Chest pain, unspecified; R50.9 Fever, unspecified
CPT/HCPCS: 71045; 80048; 84484; 85025; 85378; 86803; 87389; 87636; 93005; 96374; 99284; J1885